=== PATIENT | female | born 1965 | race Caucasian/White ===

== ENCOUNTER 2017-05-01 07:12 | Day surgery (SDC) | END 2017-05-01 14:45 | disposition home or self-care (01) ==

== ENCOUNTER 2018-02-01 05:37 | Day surgery (SDC) | END 2018-02-01 10:42 | disposition home or self-care (01) ==

== ENCOUNTER 2018-10-22 11:36 | Day surgery (SDC) | payer OTHER ==
[~2018-10-22] VITALS: Ht 152.4 cm; Wt 58.5 kg
[~2018-10-22 11:36] MED LIST: ATOR10TA65 PO; DOCU-221 PO; FER325 PO; LOSA100T15 PO
[2018-10-22] MEDS ORDERED: SOD CHLORIDE 0.9% 1,000 ML IV SCH (12:15)
[2018-10-22 12:50] VITALS: BP 162/72; PULSE 74; RESP 18; Ht 152.4 cm; Wt 58.5 kg
[2018-10-22] MEDS ORDERED: VALS320T15 ORAL (13:41)
[2018-10-22] MEDS ORDERED: VALS320T2 PO (13:42)
[2018-10-22] MEDS ORDERED: LIDOCAINE 1% (MDV) 20 ML INJ ONE (14:37)
[2018-10-22] MEDS ORDERED: FENTAnyl 50 MCG/ML VIAL ONE (15:00)
[2018-10-22 16:50] VITALS: BP 127/61; PULSE 67; RESP 18
--- NOTE | 2018-10-25 13:46 | HPN ---
Date/Time of Note Date/Time of Note DATE: 10/25/18 TIME: 13:46 Interval H&P Admission Note Pt. seen H&P reviewed: No system changes PATRICIA BARRETT MD Oct 25, 2018 13:46
== END 2018-10-22 17:33 | disposition home or self-care (01) ==
LOC: SDS 11:36
PROVIDERS: ATTEND Internal Medicine Nephrology
DX: I12.9 Hypertensive chronic kidney disease with stage 1 through stage 4 chronic kidney disease, or unspecified chronic kidney disease (principal); N18.9 Chronic kidney disease, unspecified
CPT/HCPCS: 47000; 77012; 85610; 85730; J3010; Z7610